=== PATIENT | female | born 1965 | race Caucasian/White ===

== ENCOUNTER 2019-02-12 09:04 | Day surgery (SDC) | payer OTHER ==
[~2019-02-12] VITALS: Ht 167.6 cm; Wt 68.4 kg
[2019-02-12 09:38] VITALS: Ht 167.6 cm; Wt 68.4 kg
[2019-02-12] MEDS ORDERED: XANAX (09:42)
[2019-02-12 09:58] VITALS: BP 98/49; PULSE 53; RESP 17
[2019-02-12 11:15] VITALS: BP 138/67; PULSE 61; RESP 18
[2019-02-12 11:30] VITALS: BP 107/59; PULSE 60; RESP 19
[2019-02-12] MEDS ORDERED: ATROPINE 1 MG/10 ML SYRINGE ONE (11:35)
[2019-02-12 11:45] VITALS: BP 110/60; PULSE 59; RESP 18
[2019-02-12] MEDS ORDERED: FENTAnyl 50 MCG/ML VIAL ONE (11:51)
[2019-02-12] MEDS ORDERED: MIDAZOLAM 1 MG/ML 2 ML INJ ONE ×3 (11:51)
--- NOTE | 2019-02-13 07:29 | CONS ---
DATE OF ADMISSION: 02/12/2019 DATE OF CONSULTATION: PATIENT NAME: DILMA ALVARADO Dear Dr. Riojas: I thank you very much for this kind referral. HISTORY OF PRESENT ILLNESS: Ms. Dilma Alvarado is a 53-year-old female patient who has been referred to me for further evaluation of positive occult blood in stool. The patient has also noticed a change i n the bowel habit. No past history of colon neoplasm. The patient never had screening colonoscopy. Appetite is good. No weight loss. No upper abdominal pain. Not on nonsteroidal anti-inflammatory agents. No history of gallstones or liver disease. Not a hypertensive or diabetic. No heart diseas e, lung problem or kidney disease. SOCIAL HISTORY: The patient is a smoker. Denies alcohol abuse. FAMILY HISTORY: No family history of gastrointestinal tract neoplasm. ALLERGIES: NO DRUG ALLERGIES. MEDICATIONS: None. PHYSICAL EXAMINATION: VITAL SIGNS: She is 5 feet 6 inches tall and weighs 150 pounds. HEART: Normal heart sounds. LUNGS: Clear. ABDOMEN: Soft. No masses. Normal bowel sounds. NEUROLOGICAL: Normal neurological exam. IMPRESSION: 1. Positive occult blood in stool. 2. Change in the bowel habit. 3. The patient never had screening colonoscopy. 4. The patient is a smoker. PLAN: Screening colonoscopy. The procedure and possible complications were well explained to the patient. She understands and con sents to the procedure. I thank you once again. With warmest personal regards, Dictated By: TIA ZAPATA MD GD/NTS Conf#: [id number] DID#: [id number] CC: Dr. Riojas;*[facility]*
== END 2019-02-12 12:13 | disposition home or self-care (01) ==
LOC: GIL 09:04
PROVIDERS: ATTEND Internal Medicine Gastroenterology
DX: K92.1 Melena (principal); D12.5 Benign neoplasm of sigmoid colon; K64.8 Other hemorrhoids
CPT/HCPCS: 45380; 84703; 88305; J0461; J2250; J3010; Z7610